=== PATIENT | male | born 1955 | race Two or more races ===

== ENCOUNTER 2022-04-01 09:56 | Inpatient (IN) | payer OTHER ==
[~2022-04-01] VITALS: Ht 180.3 cm; Wt 108.0 kg
[2022-04-01] MEDS ORDERED: IBUPROFEN800 MG (10:30)
[2022-04-01] MEDS ORDERED: GABAPENTIN300 M2 (10:30)
== END 2022-04-09 23:30 | disposition home or self-care (01) | DRG 603 ==
LOC: ER 09:56 → ICU 21:15 → ICU-2 22:43 → ICU 04-02 03:56 → MEDJ 04-05 03:16
PROVIDERS: ADMIT Internal Medicine; ATTEND Internal Medicine
PROC: BW21ZZZ Computerized Tomography (CT Scan) of Abdomen and Pelvis (ICD-10-PCS; 2022-04-01)
PROC: BW2FYZZ Computerized Tomography (CT Scan) of Neck using Other Contrast (ICD-10-PCS; 2022-04-01)
PROC: BW2FYZZ Computerized Tomography (CT Scan) of Neck using Other Contrast (ICD-10-PCS; 2022-04-06)
PROC: 30233N1 Transfusion of Nonautologous Red Blood Cells into Peripheral Vein, Percutaneous Approach (ICD-10-PCS; 2022-04-08)
PROC: 0DJD8ZZ Inspection of Lower Intestinal Tract, Via Natural or Artificial Opening Endoscopic (ICD-10-PCS; principal; 2022-04-09)
DX: L03.211 Cellulitis of face (principal); I85.00 Esophageal varices without bleeding; K76.6 Portal hypertension; K92.1 Melena; D64.9 Anemia, unspecified; K11.20 Sialoadenitis, unspecified; K74.69 Other cirrhosis of liver; K29.80 Duodenitis without bleeding; I10 Essential (primary) hypertension; Z20.822 Contact with and (suspected) exposure to COVID-19